=== PATIENT | female | born 1970 | race African-American/Black ===

== ENCOUNTER 2017-03-27 23:04 | Emergency (ER) | payer OTHER ==
--- NOTE | ~2017-03-27 | EKG ---
PATIENT: DENIS KIRBY UNIT #: [id number] Ventricular Rate: 81 BPM Atrial Rate: 81 BPM P-R Interval: 160 ms QRS Duration: 100 ms Q-T Interval: 374 ms QTC Calculation(Bezet): 434 ms P [place]: 50 degrees Calculated R [place]: 61 degrees Calculated T [place]: 80 degrees Diagnosis Line: Normal sinus rhythm Diagnosis Line: Possible Left atrial enlargement Diagnosis Line: Borderline ECG Diagnosis Line: When compared with ECG of 24-MAY-2011 23:01, Diagnosis Line: No significant change was found Diagnosis Line: Confirmed by KENTRELL VELIZ MD ([id number]) on 03/29/2017 Diagnosis Line: 4:31:15 PM INTERPRETING MD: JOSE ALFREDO VILLEGAS
--- NOTE | ~2017-03-27 | CR72 ---
[facility] A Service of [facility] RADIOLOGY TEXT RESULTS PATIENT: DENIS KIRBY LOCATION: [facility] : 74 UNIT #: [id number] AGE: [address]: Red Rankin MD SEX: F ORDER DR: [id number] [facility] [address] [place], [place] [address] [id number] E MR#: [id number] Acc #: [id number] NAME: DENIS KIRBY : 1970 SEX: F STUDY DATE/TIME: 03/28/2017 2:22 UNIT: [facility] ROOM: STUDY DESCRIPTION: CR Chest Single View Portable Attending Physician: Red Rankin M.D. Ordering Physician: Red Rankin M.D. Primary Care Physician: Primary Care Physician No MEDICAL IMAGING REPORT This report is preliminary unless electronic signature is present EXAM Portable chest INDICATION Right side chest pain for 3 days. COMPARISON 03/11/2011. FINDINGS A portable view of the chest was obtained. The heart size and vascularity are normal. The lungs are clear. The bones are normal. IMPRESSION No active disease. Dictated by... Mike Hand M.D. THIS IS AN ELECTRONICALLY VERIFIED REPORT Mike Hand M.D. at 03/28/2017 1:31 PM DANNY/sabino TD: 03/28/2017 09:43 JOB #: [id number] MEDICAL IMAGING REPORT Page 1 of 1 COPY
--- NOTE | ~2017-03-27 | CT2 ---
[facility] A Service of [facility] RADIOLOGY TEXT RESULTS PATIENT: DENIS KIRBY LOCATION: [facility] : 74 UNIT #: [id number] AGE: [address]: Red Rankin MD SEX: F ORDER DR: [id number] [facility] [address] [place], [place] [address] [id number] E MR#: [id number] Acc #: [id number] NAME: DENIS KIRBY : 1970 SEX: F STUDY DATE/TIME: 03/28/2017 3:46 UNIT: [facility] ROOM: STUDY DESCRIPTION: CT Abd and Pelv W Cont Attending Physician: Red Rankin M.D. Ordering Physician: Red Rankin M.D. MEDICAL IMAGING REPORT This report is preliminary unless electronic signature is present EXAM CT abdomen and pelvis with contrast HISTORY Back and abdomen pain for 3 days COMPARISON STUDIES 06/26/16 TECHNIQUE The patient was given 100 cc of Isovue 370, and axial 5 mm images were obtained through the abdomen and pelvis. Sagittal and coronal reconstructions were generated. This CT exam was performed with one or more of the following radiation dose reduction techniques: automatic exposure control, adjustment of mA and/or kV according to patient size, and iterative reconstruction. FINDINGS The lung bases are clear. The liver, spleen, pancreas, adrenal glands and kidneys are normal. There is a gallstone or gallstones within the gallbladder measuring up to 2.6 cm in diameter. This could also represent calcification of the gallbladder wall. The appearance is unchanged from 06/26/16, but is new from 11/14/10. Gallbladder wall is not thickened. The bowel is normal. The appendix is normal. The right ovary contains a cyst measuring 5.6 cm in diameter. The uterus and left ovary appear normal. The bladder is normal. The bones are unremarkable. IMPRESSION 1. A 5.6 cm right ovarian cyst. 2. A 2.6 cm stone or stones in the gallbladder near the neck that are calcified. [facility] A Service of [facility] RADIOLOGY TEXT RESULTS PATIENT: DENIS KIRBY LOCATION: [facility] : 74 UNIT #: [id number] AGE: [address]: Red Rankin MD SEX: F ORDER DR: 3. Otherwise, normal. Dictated by... Mike Hand M.D. THIS IS AN ELECTRONICALLY VERIFIED REPORT Mike Hand M.D. at 03/28/2017 1:31 PM DANNY/daisha TD: 03/28/2017 10:43 JOB #: [id number] MEDICAL IMAGING REPORT Page 1 of 1 COPY
[~2017-03-27 23:04] MED LIST: CIPRO PO; COLACE PO; DICYCLOMINE HCL20 MG PO; FLEXERIL10 MG PO; LISINOPRIL20 MG PO; LORTAB 5/500 TA1 TA2 PO; ORUDIS75 M1 PO; PEPCID AC20 MG PO
[2017-03-28 01:22] LABS: BASOPHIL% 0.1 % (0-2.5); EOSINOPHIL% 0.1 % (0.0-7.0); HEMATOCRIT 34.9 % (35.0-45.0); HEMOGLOBIN 11.8 gm/dL (12.0-16.0); LYMPHOCYTE# 0.8 X10e3 (1.0-3.5); LYMPHOCYTE% 10.8 % (17.0-45.0); MEAN CELL VOLUME 95.9 FL (83-96); MEAN CORPUSCULAR HEMOGLOBIN 32.3 PG (28-34); MEAN CORPUSCULAR HGB CONC 33.7 g/dL (30-36); MEAN PLATELET VOLUME 8.9 FL (6.5-11.5); MONOCYTE# 0.5 X10e3 (0-1.0); MONOCYTE% 6.2 % (3.0-12.0); NEUTROPHIL# 6.2 X10e3 (1.5-7.1); NEUTROPHIL% 82.8 % (40-75); PLATELET COUNT 112 X10e3 (140-420); RED BLOOD COUNT 3.64 X10e (3.90-5.30); RED CELL DISTRIBUTION WIDTH 13.3 % (11.0-15.5); WHITE BLOOD COUNT 7.5 X10e3 (4.0-10.5)
[2017-03-28 01:30] LABS: DIFF IND NO
[2017-03-28 02:25] LABS: ALBUMIN SERUM 3.7 g/dL (3.5-5.0); ALKALINE PHOSPHATASE 69 U/L (32-92); ALT (SGPT) 59 U/L (10-40); AST (SGOT) 63 U/L (10-42); BILIRUBIN, DIRECT <0.1 mg/dL (0.0-0.2); BILIRUBIN,INDIRECT 0.5 mg/dL (0.0-0.9); BILIRUBIN,TOTAL 0.6 mg/dL (0.2-2.0); BLOOD UREA NITROGEN 9 mg/dL (9-23); BUN/CREATININE RATIO 11.25; CALCIUM SERUM 8.5 mg/dL (8.4-10.2); CARBON DIOXIDE 27 mmol/L (22-31); CHLORIDE 100 mmol/L (100-111); CREATININE SERUM 0.8 mg/dL (0.6-1.4); GLOM FILT RATE Estimated 103.3 mL/min (>60); GLUCOSE FASTING 206 mg/dL (70-110); POTASSIUM 3.5 mmol/L (3.5-5.1); PROTEIN TOTAL SERUM 7.4 g/dL (6.0-8.3); SODIUM 132 mmol/L (135-145)
[2017-03-28 02:35] LABS: POC - CKMB 1.7 ng/mL (0.0-7.9); POC - TROPONIN <0.05 ng/mL (<=0.05)
[2017-03-28 04:24] LABS: POC - CKMB 1.5 ng/mL (0.0-7.9); POC - TROPONIN <0.05 ng/mL (<=0.05)
== END 2017-03-28 05:45 | disposition home or self-care (01) ==
LOC: CED 23:04
PROVIDERS: Emergency Medicine
DX: K80.50 Calculus of bile duct without cholangitis or cholecystitis without obstruction (principal); F41.9 Anxiety disorder, unspecified; F17.200 Nicotine dependence, unspecified, uncomplicated; Z91.040 Latex allergy status; Z79.899 Other long term (current) drug therapy
CPT/HCPCS: 36415; 71010; 74177; 80048; 80076; 82553; 84484; 85025; 85379; 93005; 96374; 96375; 99284; J1885; J2270; Q9967